=== PATIENT | male | born 1970 | race Caucasian/White ===

== ENCOUNTER 2018-08-16 11:27 | Emergency (ER) | payer BC, OTHER ==
[~2018-08-16] VITALS: Ht 177.8 cm; Wt 102.0 kg
[~2018-08-16 11:27] MED LIST: METH500T97 PO
--- NOTE | 2018-08-16 13:12 | NUR ---
TO ROOM FROM LOBBY, GAIT SLOW AND STEADY
--- NOTE | 2018-08-16 13:16 | NUR ---
TASK RN: 58 Y/O MALE PRESENTS TO ED WITH C/O KIDNEY STONES. PER PT "I HAVE KIDNEY STONES. MY LEFT BACK HURTS. I CAN BARLEY PEE. JUST A FEW DROPS. I'VE HAD THEM BEFORE. I QUIT DRINKING TEA AND SODA AND EVEN LOST 45 POUNDS. I DON'T KNOW WHY I'M STILL GETTING THEM" PT PLACED ON CONT PULSE OX, NIBP. NO C/O V/D, TRAUMA, SYNCOPE, CP, SOB
[2018-08-16] MEDS ORDERED: HYDROmorphone 1 MG/ML, 1ML VIAL ONE (13:49)
[2018-08-16] MEDS ORDERED: KETOROLAC 30 MG/1 ML ONE (13:50)
[2018-08-16] MEDS ORDERED: KETOROLAC 30 MG/1 ML IVPush ONE (14:00)
[2018-08-16] MEDS ORDERED: HYDROmorphone 2 MG/ML, 1ML IVPush PRN (14:00)
[2018-08-16 14:01] LABS: BASOPHILS # (AUTO) 0.01 x10^3/uL (0-0.1); BASOPHILS % (AUTO) 0 % (0-1); EOSINOPHILS # (AUTO) 0.06 x10^3/uL (0-0.4); EOSINOPHILS % (AUTO) 0 % (1-7); LYMPHOCYTES # (AUTO) 0.95 x10^3/uL (1-3.4); LYMPHOCYTES % (AUTO) 6 % (22-44); MD NO; MEAN CORPUSCULAR HEMOGLOBIN 29.7 pg (27.5-34.5); MEAN CORPUSCULAR HGB CONC 33.3 g/dL (33.2-36.2); MEAN PLATELET VOLUME 8.3 fL (7.4-10.4); MONOCYTES # (AUTO) 0.97 x10^3/uL (0.2-0.8); MONOCYTES % (AUTO) 6 % (2-9); NEUTROPHILS % (AUTO) 87 % (42-75); PLATELET COUNT 278 x10^3/uL (130-400); RED BLOOD COUNT 5.44 x10^6/uL (4.38-5.82); RED CELL DISTRIBUTION WIDTH 14.1 % (9.4-14.8)
--- NOTE | 2018-08-16 14:03 | NUR ---
PT MEDICATED PER JUN. VSS. PT REPORTS PAIN 0-05/23. UA COLLECTED AND SENT. AWAITING CT. NO NEEDS EXPRESSED. CALL LIGHT WITHN REACH.
[2018-08-16 14:11] LABS: ALBUMIN 3.7 g/dL (3.4-5.0); ANION GAP 8 mmol/L (5-15); CALCIUM 9.1 mg/dL (8.5-10.1); CHLORIDE 111 mmol/L (98-107); CREATININE 1.06 mg/dL (0.7-1.3)
[2018-08-16 14:54] LABS: MICROSCOPIC INDICATED
[2018-08-16 14:57] VITALS: BP 119/74
[2018-08-16 15:00] LABS: CULTURE INDICATED? NO
--- NOTE | 2018-08-16 15:06 | NUR ---
all results back at this time. chart up for recheck. vss. no needs expressed.
--- NOTE | 2018-08-16 15:58 | NUR ---
TASK RN: FIRST CONTACT WITH PT. Patient/Caregiver given discharge instructions and they have confirmed that they understand the instructions. Patient ambulatory with steady gait. PT LEFT WITH ALL PERSONAL BELONGINGS.
== END 2018-08-16 16:05 | disposition home or self-care (01) ==
LOC: ED 15:59
DX: N13.2 Hydronephrosis with renal and ureteral calculous obstruction (principal); F17.200 Nicotine dependence, unspecified, uncomplicated
CPT/HCPCS: 36415; 74176; 80048; 81001; 82040; 85025; 96374; 96375; 99284; J1170; J1885

== ENCOUNTER 2019-12-14 14:17 | Inpatient (IN) | payer OTHER ==
[~2019-12-14] VITALS: Ht 177.8 cm; Wt 117.3 kg
[2019-12-14] MEDS ORDERED: POLY10DR3 OP (15:02)
[2019-12-14] MEDS ORDERED: CEPH-376 PO (15:02)
--- NOTE | 2019-12-14 15:04 | NUR ---
REPORTS WORSENING OF RT EYE INFECTION, LARGE AMT OF "WEEPING", PAIN. RECEIVED [facility]OTIC SHOT AT [facility] [employer]. TOOK ORAL ANTIBIOTIC THIS AM & INSTILLED EYE DROP. WEARS READING GLASSES. DENIES CONTACT W/ ANYONE W/ EYE INFECTION. NO PAIN MED TAKEN TODAY.
[2019-12-14] MEDS ORDERED: SODIUM CHLORIDE FLUSH 10ML SYR IVF ONE (15:30)
[2019-12-14 15:42] LABS: BASOPHILS # (AUTO) 0.03 x10^3/uL (0-0.1); BASOPHILS % (AUTO) 0 % (0-1); EOSINOPHILS # (AUTO) 0.27 x10^3/uL (0-0.4); EOSINOPHILS % (AUTO) 4 % (1-7); LYMPHOCYTES # (AUTO) 1.24 x10^3/uL (1-3.4); LYMPHOCYTES % (AUTO) 17 % (22-44); MD NO; MEAN CORPUSCULAR HEMOGLOBIN 30.2 pg (27.5-34.5); MEAN CORPUSCULAR HGB CONC 33.6 g/dL (33.2-36.2); MONOCYTES # (AUTO) 0.95 x10^3/uL (0.2-0.8); MONOCYTES % (AUTO) 13 % (2-9); NEUTROPHILS # (AUTO) 4.72 x10^3/uL (1.8-6.8); NEUTROPHILS % (AUTO) 66 % (42-75); PLATELET COUNT 263 x10^3/uL (130-400)
[2019-12-14 15:53] LABS: ALBUMIN 3.4 g/dL (3.4-5.0); ANION GAP 5 mmol/L (5-15); CALCIUM 9.2 mg/dL (8.5-10.1); CHLORIDE 111 mmol/L (98-107)
[2019-12-14 15:56] LABS: CREATININE 0.86 mg/dL (0.7-1.3)
[2019-12-14] MEDS ORDERED: OMNIPAQUE 350 MG/ML, 75ML BOTTLE ONE (16:42)
--- NOTE | 2019-12-14 16:50 | NUR ---
PT AMBULATORY TO & FROM [facility] W/OUT INCIDENT; GAIT STEADY
--- NOTE | 2019-12-14 17:35 | NUR ---
PT REPORT TO BRIGIDA ALCALA RN. PT CARE TRANSFERRED.
[2019-12-14] MEDS ORDERED: CLINDAMYCIN PMX 300MG/50ML 50 ML IV ONE (18:00)
[2019-12-14] MEDS ORDERED: ACETAMINOPHEN 325 MG TABLET PO PRN (18:00)
[2019-12-14] MEDS ORDERED: OXYcodone/APAP 5/325MG TABLET PO PRN (18:00)
[2019-12-14] MEDS ORDERED: ONDANSETRON 2MG/ML, 2ML IVPush PRN (18:00)
[2019-12-14] MEDS ORDERED: DOCUSATE 100 MG CAPSULE PO PRN (18:00)
[2019-12-14] MEDS ORDERED: ENALAPRILAT 1.25 MG/ML, 2ML IVPush PRN (18:00)
[2019-12-14] MEDS ORDERED: ZOLPIDEM 5MG TABLET PO PRN (18:00)
[2019-12-14] MEDS ORDERED: SODIUM CHLORIDE FLUSH 10ML SYR IVF PRN (18:00)
[2019-12-14] MEDS ORDERED: AMOXICILLIN/CLAV 875-125MG TABLET ONE (18:03)
[2019-12-14] MEDS: AMOXICILLIN/CLAV 875-125MG TABLET PO SCH (18:07)
--- NOTE | 2019-12-14 18:15 | NUR ---
PHARMACY REQUEST SLIP SENT FOR CLEOCIN 300MG IVP.
[2019-12-14] MEDS ORDERED: NICOTINE 14MG/24 HR PATCH.TD24 ONE (18:25)
[2019-12-14] MEDS ORDERED: NICOTINE 14MG/24 HR PATCH.TD24 TD ONE (18:30)
--- NOTE | 2019-12-14 19:02 | NUR ---
CLINDAMYCIN HUNG AT 1835 PER ASHELY LANZA. INFUSING AT 100ML/HR VIA PUMP.
--- NOTE | 2019-12-14 19:05 | NUR ---
Riley selby in [facility] - 12/14/19 at 1911 by [facility]
--- NOTE | 2019-12-14 19:08 | NUR ---
CALLED RECEIVING UNIT, RN NOT CURRENTLY AVAILABLE BUT WILL CALL BACK.
--- NOTE | 2019-12-14 19:22 | NUR ---
PT REPORT TO ASHELY TIWARI FOR ROOM 347
[2019-12-14 20:09] VITALS: BP 118/80
[2019-12-14] MEDS: POLYTRIM OPHTH 10ML OP SCH (21:50)
[2019-12-15] MEDS: CLINDAMYCIN PMX 600MG/50ML 50 ML IV SCH ×2 (01:51→11:05)
[2019-12-15] MEDS: morphine SULFATE 10 MG/ML, 1ML IVPush PRN ×4 (02:00→19:43)
[2019-12-15 02:03] VITALS: BP 126/86
[2019-12-15 05:11] LABS: BASOPHILS # (AUTO) 0.04 x10^3/uL (0-0.1); BASOPHILS % (AUTO) 1 % (0-1); EOSINOPHILS # (AUTO) 0.31 x10^3/uL (0-0.4); EOSINOPHILS % (AUTO) 4 % (1-7); LYMPHOCYTES % (AUTO) 17 % (22-44); MD NO; MEAN CORPUSCULAR HGB CONC 33.1 g/dL (33.2-36.2); MEAN CORPUSCULAR VOLUME 90.7 fL (81-97); MONOCYTES # (AUTO) 1.04 x10^3/uL (0.2-0.8); MONOCYTES % (AUTO) 15 % (2-9); NEUTROPHILS # (AUTO) 4.55 x10^3/uL (1.8-6.8); NEUTROPHILS % (AUTO) 64 % (42-75); PLATELET COUNT 212 x10^3/uL (130-400); RED BLOOD COUNT 5.08 x10^6/uL (4.38-5.82)
[2019-12-15 05:18] LABS: ANION GAP 5 mmol/L (5-15); CALCIUM 9.1 mg/dL (8.5-10.1); CHLORIDE 111 mmol/L (98-107)
[2019-12-15 05:19] LABS: CREATININE 0.86 mg/dL (0.7-1.3)
[2019-12-15] MEDS: AMOXICILLIN/CLAV 875-125MG TABLET PO SCH (07:15)
[2019-12-15] MEDS: POLYTRIM OPHTH 10ML OP SCH ×4 (07:16→19:43)
[2019-12-15 08:29] VITALS: BP 131/84
[2019-12-15 13:40] VITALS: BP 106/68
[2019-12-15] MEDS: NICOTINE 14MG/24 HR PATCH.TD24 TD SCH (15:42)
[2019-12-15] MEDS ORDERED: VANCOMYCIN PER PHARMACY MC PRN (16:00)
[2019-12-15] MEDS: PIPERACILLIN/TAZO/PMX 3.375GM 50 ML IV SCH (17:07)
[2019-12-15] MEDS ORDERED: VANCOMYCIN 2,500 MG in SODIUM CHLORIDE 0.9% 500 ML IV ONE (18:00)
[2019-12-15] MEDS ORDERED: PHARMACOKINETIC MONITORING MC PRN (18:00)
[2019-12-15 19:29] VITALS: BP 126/73
[2019-12-15] MEDS ORDERED: DIPHENHYDRAMINE 50 MG/ML, 1ML IVPush ONE (21:30)
[2019-12-16] MEDS: PIPERACILLIN/TAZO/PMX 3.375GM 50 ML IV SCH ×4 (01:00→18:19)
[2019-12-16 01:11] VITALS: BP 121/68
[2019-12-16 06:48] VITALS: BP 112/67
[2019-12-16] MEDS: POLYTRIM OPHTH 10ML OP SCH ×4 (08:02→19:46)
[2019-12-16] MEDS: VANCOMYCIN 2,000 MG in SODIUM CHLORIDE 0.9% 500 ML IV SCH ×2 (08:02→19:46)
[2019-12-16] MEDS: morphine SULFATE 10 MG/ML, 1ML IVPush PRN ×3 (08:04→21:39)
[2019-12-16 13:38] VITALS: BP 135/78
[2019-12-16] MEDS: NICOTINE 14MG/24 HR PATCH.TD24 TD SCH (16:18)
[2019-12-16 19:57] VITALS: BP 138/87
[2019-12-17] MEDS: morphine SULFATE 10 MG/ML, 1ML IVPush PRN ×3 (00:54→12:37)
[2019-12-17] MEDS: PIPERACILLIN/TAZO/PMX 3.375GM 50 ML IV SCH ×4 (03:02→20:16)
[2019-12-17 03:04] VITALS: BP 120/79
[2019-12-17 05:22] LABS: ANION GAP 3 mmol/L (5-15); CALCIUM 8.7 mg/dL (8.5-10.1); CHLORIDE 108 mmol/L (98-107); CREATININE 1.51 mg/dL (0.7-1.3)
[2019-12-17 05:37] LABS: BASOPHILS # (AUTO) 0.03 x10^3/uL (0-0.1); BASOPHILS % (AUTO) 0 % (0-1); EOSINOPHILS # (AUTO) 0.18 x10^3/uL (0-0.4); EOSINOPHILS % (AUTO) 3 % (1-7); LYMPHOCYTES # (AUTO) 1.01 x10^3/uL (1-3.4); LYMPHOCYTES % (AUTO) 14 % (22-44); MD NO; MEAN CORPUSCULAR HEMOGLOBIN 29.7 pg (27.5-34.5); MEAN CORPUSCULAR HGB CONC 32.8 g/dL (33.2-36.2); MEAN CORPUSCULAR VOLUME 90.7 fL (81-97); MEAN PLATELET VOLUME 7.9 fL (7.4-10.4); MONOCYTES # (AUTO) 1.12 x10^3/uL (0.2-0.8); MONOCYTES % (AUTO) 16 % (2-9); NEUTROPHILS % (AUTO) 68 % (42-75); PLATELET COUNT 201 x10^3/uL (130-400); RED CELL DISTRIBUTION WIDTH 13.8 % (9.4-14.8)
[2019-12-17] MEDS: POLYTRIM OPHTH 10ML OP SCH ×4 (06:13→20:16)
[2019-12-17 08:33] VITALS: BP 123/77
[2019-12-17 13:44] VITALS: BP 121/73
[2019-12-17] MEDS: NICOTINE 14MG/24 HR PATCH.TD24 TD SCH (16:40)
[2019-12-17 20:26] VITALS: BP 135/81
[2019-12-18] MEDS: PIPERACILLIN/TAZO/PMX 3.375GM 50 ML IV SCH ×3 (03:53→20:40)
[2019-12-18 04:03] LABS: HCT (SEDRATE) 45.4 % (39.2-51.8)
[2019-12-18 04:13] LABS: ALBUMIN 2.9 g/dL (3.4-5.0); ANION GAP 6 mmol/L (5-15); CALCIUM 8.5 mg/dL (8.5-10.1); CHLORIDE 107 mmol/L (98-107)
[2019-12-18 04:22] LABS: ALANINE AMINOTRANSFERASE 54 U/L (12-78); ALKALINE PHOSPHATASE 81 U/L (45-117); BILIRUBIN,TOTAL 0.7 mg/dL (0.2-1.0); CREATININE 1.63 mg/dL (0.7-1.3)
[2019-12-18] MEDS: morphine SULFATE 10 MG/ML, 1ML IVPush PRN (06:07)
[2019-12-18] MEDS: POLYTRIM OPHTH 10ML OP SCH ×4 (06:07→20:40)
[2019-12-18 06:28] VITALS: BP 119/75
[2019-12-18 12:41] VITALS: BP 130/81
[2019-12-18] MEDS: NICOTINE 14MG/24 HR PATCH.TD24 TD SCH (16:39)
[2019-12-18 19:01] VITALS: BP 123/77
[2019-12-19] MEDS: POLYTRIM OPHTH 10ML OP SCH ×2 (04:53→11:06)
[2019-12-19] MEDS: PIPERACILLIN/TAZO/PMX 3.375GM 50 ML IV SCH (04:54)
[2019-12-19 05:38] LABS: BASOPHILS # (AUTO) 0.02 x10^3/uL (0-0.1); BASOPHILS % (AUTO) 0 % (0-1); EOSINOPHILS # (AUTO) 0.22 x10^3/uL (0-0.4); EOSINOPHILS % (AUTO) 3 % (1-7); LYMPHOCYTES # (AUTO) 1.17 x10^3/uL (1-3.4); LYMPHOCYTES % (AUTO) 15 % (22-44); MD NO; MEAN CORPUSCULAR HEMOGLOBIN 30.1 pg (27.5-34.5); MEAN CORPUSCULAR HGB CONC 33.8 g/dL (33.2-36.2); MEAN PLATELET VOLUME 8.5 fL (7.4-10.4); MONOCYTES # (AUTO) 1.03 x10^3/uL (0.2-0.8); MONOCYTES % (AUTO) 13 % (2-9); NEUTROPHILS # (AUTO) 5.55 x10^3/uL (1.8-6.8); NEUTROPHILS % (AUTO) 70 % (42-75); PLATELET COUNT 217 x10^3/uL (130-400); RED BLOOD COUNT 5.01 x10^6/uL (4.38-5.82); RED CELL DISTRIBUTION WIDTH 13.8 % (9.4-14.8)
[2019-12-19 05:39] LABS: HCT (SEDRATE) 44.5 % (39.2-51.8)
[2019-12-19 05:46] LABS: CHLORIDE 108 mmol/L (98-107)
[2019-12-19 05:58] LABS: ALANINE AMINOTRANSFERASE 69 U/L (12-78); ALKALINE PHOSPHATASE 78 U/L (45-117); ANION GAP 8 mmol/L (5-15); BILIRUBIN,TOTAL 0.4 mg/dL (0.2-1.0); CALCIUM 8.8 mg/dL (8.5-10.1); CREATININE 1.49 mg/dL (0.7-1.3); TOTAL PROTEIN 6.9 g/dL (6.4-8.2)
[2019-12-19] MEDS ORDERED: AMOX1TAB64 PO (09:41)
== END 2019-12-19 12:14 | disposition home or self-care (01) | DRG 603 ==
LOC: ED 16:22 → EDIP 17:38 → 3N 19:56 → DCLOUNGE 12-19 12:05
PROVIDERS: ADMIT Hospitalist; ATTEND Family Medicine
DX: L03.211 Cellulitis of face (principal); N17.9 Acute kidney failure, unspecified; L03.213 Periorbital cellulitis; H10.9 Unspecified conjunctivitis; E66.9 Obesity, unspecified; E87.8 Other disorders of electrolyte and fluid balance, not elsewhere classified; F17.200 Nicotine dependence, unspecified, uncomplicated; Z82.49 Family history of ischemic heart disease and other diseases of the circulatory system; Z68.37 Body mass index [BMI] 37.0-37.9, adult; Z83.3 Family history of diabetes mellitus; T36.8X5A Adverse effect of other systemic antibiotics, initial encounter; R73.9 Hyperglycemia, unspecified; Y92.89 Other specified places as the place of occurrence of the external cause
CPT/HCPCS: 36415; 70481; 80048; 80053; 82040; 83036; 84145; 85025; 85651; 86140; 87081; 96374; G0378; J2543; J3370; Q9967; J1200; J2270; J7040

== ENCOUNTER 2020-08-10 10:12 | Emergency (ER) | payer OTHER ==
[~2020-08-10] VITALS: Ht 177.8 cm; Wt 117.0 kg
[~2020-08-10 10:12] MED LIST changes: +AMOX1TAB64 PO; +CEPH-376 PO; +POLY10DR3 OP
--- NOTE | 2020-08-10 10:48 | NUR ---
PT AMBULATORY TO ROOM 14 W/ C/O R FLANK STARTED TODAY AT 0745 WHEN PT AWOKE. PT STATES HX KIDNEY STONES BUT THEY ARE USUALLY ON THE L SIDE. PT STATES HE TOOK NORCO THIS AM W/O RELIEF. PT RESTING ON GURNEY. MONITORS APPLIED. VSS. PIV INITIATED. WARM BLANKET PROVIDED.
[2020-08-10] MEDS ORDERED: SODIUM CHLORIDE FLUSH 10ML SYR IVF ONE (11:00)
[2020-08-10] MEDS ORDERED: ONDANSETRON 2MG/ML, 2ML IVPush ONE (11:00)
[2020-08-10] MEDS ORDERED: HYDROmorphone 1 MG/ML, 1ML INJ IV ONE (11:00)
[2020-08-10] MEDS ORDERED: KETOROLAC 30 MG/1 ML IVPush ONE (11:00)
[2020-08-10] MEDS ORDERED: HYDROmorphone 1 MG/ML, 1ML INJ ONE (11:02)
[2020-08-10] MEDS ORDERED: ONDANSETRON 2MG/ML, 2ML ONE (11:02)
[2020-08-10] MEDS ORDERED: KETOROLAC 30 MG/1 ML ONE (11:02)
[2020-08-10] MEDS ORDERED: KETAMINE 10 MG/ML, 20ML IV ONE (11:27)
[2020-08-10 11:32] LABS: ALBUMIN 3.5 g/dL (3.4-5.0); ANION GAP 7 mmol/L (5-15); CALCIUM 8.3 mg/dL (8.5-10.1); CHLORIDE 110 mmol/L (98-107); CREATININE 0.99 mg/dL (0.7-1.3)
[2020-08-10 11:33] LABS: BASOPHILS % (AUTO) 0 % (0-1); EOSINOPHILS % (AUTO) 1 % (1-7); LYMPHOCYTES % (AUTO) 8 % (22-44); MEAN CORPUSCULAR HEMOGLOBIN 29.8 pg (27.5-34.5); MEAN CORPUSCULAR HGB CONC 34.1 g/dL (33.2-36.2); MEAN PLATELET VOLUME 8.2 fL (7.4-10.4); MONOCYTES % (AUTO) 4 % (2-9); NEUTROPHILS % (AUTO) 86 % (42-75); PLATELET COUNT 259 x10^3/uL (130-400); RED BLOOD COUNT 5.15 x10^6/uL (4.38-5.82); RED CELL DISTRIBUTION WIDTH 14.4 % (9.4-14.8)
[2020-08-10 11:42] LABS: MD SCAN
[2020-08-10 11:44] LABS: MICROSCOPIC INDICATED
--- NOTE | 2020-08-10 11:55 | NUR ---
PT CHART REVIEWED AND PLACED FOR RECHECK.
--- NOTE | 2020-08-10 11:59 | NUR ---
PT RESTING ON GURNEY. NADN. HOWARD.
[2020-08-10] MEDS ORDERED: MORPHINE SULFATE 4 MG/ML, 1ML IVPush PRN (12:30)
[2020-08-10] MEDS ORDERED: MORPHINE SULFATE 4 MG/ML, 1ML ONE (12:32)
--- NOTE | 2020-08-10 12:55 | NUR ---
PT RESTING ON GURNEY. NADN. HOWARD.
[2020-08-10 14:14] VITALS: BP 139/78
== END 2020-08-10 14:19 | disposition home or self-care (01) ==
LOC: ED 12:21
DX: N13.2 Hydronephrosis with renal and ureteral calculous obstruction (principal); F17.200 Nicotine dependence, unspecified, uncomplicated
CPT/HCPCS: 36415; 74176; 80048; 81001; 82040; 85025; 87086; 93005; 96374; 96375; 99285; J1170; J1885; J2270; J2405